=== PATIENT | male | born 2000 | race Hispanic/Latino ===

== ENCOUNTER 2025-01-22 15:45 | Emergency (ER) | payer SELFPAY ==
[~2025-01-22] VITALS: Ht 165.1 cm; Wt 61.0 kg
[2025-01-22 16:15] LABS: BASOPHILS 0.2 % (0-2); EOSINOPHILS 0.1 % (0-6); HEMATOCRIT 48.7 % (35.0-50.0); HEMOGLOBIN 16.9 g/dL (12.0-18.0); LYMPHOCYTES 8.4 % (24-44); MCH 30.4 (27-36); MCHC 34.7 g/dl (30-36); MCV 87.6 fl (81-99); MONOCYTES 3.6 % (0-12); NEUTROPHILS 87.7 % (39-80); PLATELET COUNT 277 K/uL (140-440); RBC 5.56 M/ul (4.3-5.7); RDW 13.5 (10.5-15.0)
[2025-01-22 16:34] LABS: ALBUMIN 4.8 g/dL (3.4-5.0); ALBUMIN/GLOBULIN RATIO 1.5 (1.1-2.4); ANION GAP 14.9 (7-21); BILIRUBIN, TOTAL 0.5 mg/dL (0.2-1.0); BUN/CREATININE RATIO 13.72 (6.0-28.6); CALCIUM 9.4 mg/dL (8.5-10.1); CREATININE, SERUM 1.02 mg/dL (0.70-1.30); MAGNESIUM 1.9 mg/dL (1.8-2.4); POTASSIUM 3.9 mmol/L (3.5-5.1)
[2025-01-22] MEDS ORDERED: PANTOPRAZOLE SODIUM 40 MG/10 ML VIAL IV ONE (18:00)
[2025-01-22] MEDS ORDERED: PEPCID20 MG PO (19:14)
[2025-01-22] MEDS ORDERED: OMEPRAZOLE20 MG PO (19:14)
[2025-01-22] MEDS ORDERED: ONDANSETRON ODT4 MG PO (19:14)
[2025-01-22] MEDS ORDERED: ONDANSETRON 4 MG TAB ODT SL ONE (19:15)
[2025-01-22 19:30] VITALS: BP 125/75
== END 2025-01-22 19:30 | disposition home or self-care (01) ==
LOC: ED 15:45
PROVIDERS: Emergency Medicine
DX: K29.70 Gastritis, unspecified, without bleeding (principal)
CPT/HCPCS: 36415; 80053; 83735; 85025; 96374; 99284-25; A9270; J2470